=== PATIENT | female | born 1980 | race African-American/Black ===

== ENCOUNTER → 2019-08-17 | Day surgery (SDC) | payer BC ==
[~2019-08-17] VITALS: Ht 165.1 cm; Wt 77.1 kg
[~2019-08-17] MED LIST: ACETAMINOPHEN 325MG TABLET PO PRN; HYDROCODONE/ACETAMINOPHEN 5/325MG TABLET PO PRN; LACTATED RINGERS 1,000 ML IV SCH; MEPERIDINE HCL/PF 25MG/ML CPJ IV PRN; MORPHINE SULFATE 2 MG/ML CPJ (NOT FOR IM USE) IV PRN; ONDANSETRON HCL 4MG/2ML INJ IV PRN
[2019-08-17 06:37] LABS: UCG SCREEN NEGATIVE
[2019-08-17 11:35] VITALS: BP 103/60
== END | disposition home or self-care (01) ==
LOC: OR 06:00
PROVIDERS: ATTEND Obstetrics & Gynecology
DX: Z30.2 Encounter for sterilization (principal)
CPT/HCPCS: 58661; 81025; 88302; C1725